=== PATIENT | female | born 1955 ===

== ENCOUNTER 2024-03-28 12:47 | Outpatient (REF) | payer MEDICARE, SELFPAY ==
[2024-03-28 14:36] LABS: HCT 44.7 % (36.0-46.0); HGB 14.7 g/dL (11.2-15.7); MCH 30.2 pg (27.0-33.0); MCHC 32.9 % (32.0-36.0); MCV 92 fL (80-95); MPV 11.3 fL (8.0-11.0); Platelet Count 269 10^3/uL (130-400); RBC 4.87 10^6/uL (3.93-5.22); RDW 12.4 % (11.7-14.6); RDW-SD 41.9 fL; WBC 4.22 10^3/uL (4.4-10.8)
[2024-03-28 14:55] LABS: ALT 25 U/L (14-59); AST 22 U/L (15-37); Alkaline Phosphatase 73 U/L (46-116); Anion Gap 8.4 mmol/L (3-11); BUN 9 mg/dL (7-18); Bilirubin, Total 1.37 mg/dL (0.2-1.0); CO2 29.6 mmol/L (21.0-32.0); CREATININE 0.7 mg/dL (0.55-1.02); Calcium 9.1 mg/dL (8.5-10.1); Chloride 106 mmol/L (98-107); Estimated GFR 94.73 (mL/min/1.73m2); Glucose 85 mg/dL (74-106); Magnesium 2.2 mg/dL (1.8-2.4); Potassium 4.2 mmol/L (3.5-5.1); Sodium 144 mmol/L (136-145); TSH (W/Ref FT4) 1.17 uIU/mL (0.36-3.74); Total Protein 7.1 g/dL (6.4-8.2)
== END 2024-03-28 12:48 | disposition home or self-care (01) ==
LOC: NCHCN 12:47
PROVIDERS: PCP Internal Medicine; Visit Provider Internal Medicine
DX: R00.2 Palpitations (principal)
CPT/HCPCS: 80053; 85027; 83735; 84443

== ENCOUNTER 2024-04-23 14:48 | Outpatient (REF) | payer MEDICARE, SELFPAY ==
[2024-04-23 21:49] LABS: Abs Immature Grans 0.01 10^3/uL (0.0-0.06); Absolute Basophil Count 0.05 10^3/uL (0.0-0.2); Absolute Eosinophil Count 0.28 10^3/uL (0.0-0.7); Absolute Lymphocyte Count 1.57 10^3/uL (1.2-3.4); Absolute Monocyte Count 0.43 10^3/uL (0.1-0.8); Absolute Neutrophil Count 2.94 10^3/uL (1.2-6.7); Basophils % 0.9 %; Eosinophils % 5.3 %; HCT 42.7 % (36.0-46.0); HGB 14.2 g/dL (11.2-15.7); Immature Grans % 0.2 %; Lymphocytes % 29.7 %; MCH 30.2 pg (27.0-33.0); MCHC 33.3 % (32.0-36.0); MCV 91 fL (80-95); MPV 11.5 fL (8.0-11.0); Monocytes % 8.1 %; Neutrophils % 55.8 %; Platelet Count 265 10^3/uL (130-400); RDW 12.4 % (11.7-14.6); RDW-SD 41.2 fL; WBC 5.28 10^3/uL (4.4-10.8)
[2024-04-23 22:57] LABS: ALT 40 U/L (14-59); AST 27 U/L (15-37); Albumin 4.1 g/dL (3.4-5.0); Alkaline Phosphatase 86 U/L (46-116); Bilirubin, Total 1.17 mg/dL (0.2-1.0); Calculated LDL 103 mg/dL (<100); Cholesterol 198 mg/dL (<200); HDL Cholesterol 80 mg/dL (40-60); Total Protein 7.3 g/dL (6.4-8.2); Triglyceride 75 mg/dL (<150); Vitamin D 25 Total 44.2 ng/mL (30-100)
[2024-04-23 23:14] LABS: Bilirubin, Direct 0.2 mg/dL (0.0-0.2)
== END 2024-04-23 14:49 | disposition home or self-care (01) ==
LOC: NCHCN 14:48
PROVIDERS: PCP Internal Medicine; Visit Provider Internal Medicine
DX: D72.819 Decreased white blood cell count, unspecified (principal); M85.80 Other specified disorders of bone density and structure, unspecified site; R17 Unspecified jaundice; Z13.220 Encounter for screening for lipoid disorders
CPT/HCPCS: 80061; 80076; 82306; 85025